=== PATIENT | female | born 2005 | race Caucasian/White ===

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

== ENCOUNTER 2023-01-10 22:18 | Emergency (ER) | payer OTHER ==
[~2023-01-10] VITALS: Ht 162 cm; Wt 65.4 kg
[~2023-01-10 22:18] MED LIST changes: +SULF1TAB38 PO; -cefTRIAXone 1,000 MG VIAL IM SCH
--- NOTE | 2023-01-10 22:25 | ED GU-Female ---
General Stated Complaint: UTI SYMPTOMS History of Present Illness Date Seen by Provider: Jan 10, 2023 Time Seen by Provider: 22:21 Initial Comments 17 yr F is here with c/o dysuria and polyuria for the past 4 days. 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 Denies abdominal pain, flank pain, nausea, vomiting, fever and chills. Allergies and Home Medications Allergies Coded Allergies: No Known Drug Allergies (Unverified , 03/02/22) Patient Home Medication List Home Medication List Reviewed: Yes Sulfamethoxazole/Trimethoprim (Bactrim Ds Tablet) 1 Each Tablet, 1 EACH PO BID Prescribed by: Lizzette Maciel,Medical Student on 03/02/22 4062 Review of Systems Review of Systems Constitutional: no symptoms reported EENTM: no symptoms reported Respiratory: no symptoms reported Cardiovascular: no symptoms reported Gastrointestinal: no symptoms reported Genitourinary: dysuria, frequency Musculoskeletal: no symptoms reported Physical Exam Vital Signs Vital Signs - First Documented 01/10/23 22:23 Temp 37.0 Pulse 95 Resp 20 B/P (MAP) 143/82 (102) Pulse Ox 100 O2 Delivery Room Air Capillary Refill : Height, Weight, BMI Height: '" Weight: lbs. oz. kg; 22.00 BMI Method: General Appearance: WD/WN, no apparent distress HEENT: PERRL/EOMI Neck: full range of motion Cardiovascular: regular rate, rhythm Respiratory: lungs clear Gastrointestinal: normal bowel sounds, non tender, soft Back: no CVA tenderness Neurologic/Psychiatric: alert, oriented x 3 Progress/Results/Core Measures Suspected Sepsis SIRS Temperature: Pulse: Respiratory Rate: Blood Pressure / Mean: Results/Orders Lab Results Laboratory Tests Test 01/10/23 22:26 Range/Units Urine Color YELLOW Urine Clarity CLOUDY H Urine pH 8.0 5-9 Urine Specific [place] 1.015 L 1.016-1.022 Urine Protein 1+ H NEGATIVE Urine Glucose (UA) NEGATIVE NEGATIVE Urine Ketones NEGATIVE NEGATIVE Urine Nitrite NEGATIVE NEGATIVE Urine Bilirubin NEGATIVE NEGATIVE Urine Urobilinogen 0.2 < = 1.0 MG/DL Urine Leukocyte Esterase 3+ H NEGATIVE Urine RBC (Auto) 3+ H NEGATIVE Urine RBC >100 H /HPF Urine WBC >100 H /HPF Urine Squamous Epithelial Cells 2-5 /HPF Urine Crystals NONE /LPF Urine Bacteria LARGE H /HPF Urine Casts NONE /LPF Urine Mucus NEGATIVE /LPF Urine Culture Indicated YES Urine Test NEGATIVE NEGATIVE My Orders Orders - KRISTOPHER STOVER MD Hcg,Qualitative Urine (01/10/23 22:25) Ua Culture If Indicated (01/10/23 22:25) Urine Culture (01/10/23 22:26) Vital Signs/I&O 01/10/23 22:23 Temp 37.0 Pulse 95 Resp 20 B/P (MAP) 143/82 (102) Pulse Ox 100 O2 Delivery Room Air Capillary Refill : Progress Note : Progress Note 1. ACUTE CYSTITIS WITH HEMATURIA: - UA: Positive for leukocyte esterase, RBC, WBC, bacteria - UCG: Negative - Prescription given for nitrofurantoin 100mg, twice a day for 7 days, with first tab given in the ER -Adequate hydration advised, at least 8 glasses of water per day - Follow up with PCP as needed Departure Impression Primary Impression: Acute cystitis with hematuria Disposition: HOME, SELF-CARE Condition: Stable Departure-Patient Inst. Referrals: NO,LOCAL PHYSICIAN (PCP/Family) Primary Care Physician Patient Instructions: Urinary Tract Infection, Adult (DC), Acute Cystitis (DC) Add. Discharge Instructions: - Prescription given for nitrofurantoin 100mg, twice a day for 7 days -Adequate hydration advised, at least 8 glasses of water per day Scripts Nitrofurantoin Macrocrystal (Nitrofurantoin) 100 Mg Capsule 100 MG PO Q12H for 7 Days, #14 CAP Prov: KRISTOPHER STOVER MD 01/10/23 KRISTOPHER STOVER MD Jan 10, 2023 22:25
[2023-01-10 22:51] LABS: BILIRUBIN,URINE NEGATIVE (NEGATIVE); CLARITY,URINE CLOUDY; COLOR,URINE YELLOW; GLUCOSE, URINE (UA) NEGATIVE (NEGATIVE); KETONES,URINE NEGATIVE (NEGATIVE); LEUKOCYTE ESTERASE ,URINE 3+ (NEGATIVE); NITRITE,URINE NEGATIVE (NEGATIVE); PROTEIN,URINE 1+ (NEGATIVE)
[2023-01-10 22:52] LABS: BACTERIA,URINE LARGE /HPF; RBC,URINE >100 /HPF; WBC,URINE >100 /HPF
[2023-01-10] MEDS ORDERED: NITR100C PO (23:15)
[2023-01-10 23:23] VITALS: BP 138/91
[2023-01-10] MEDS ORDERED: NITROFURANTOIN Monohydrate/Macro 100 MG CAPSULE PO ONE (23:30)
== END 2023-01-10 23:23 | disposition home or self-care (01) ==
LOC: EDUNIT# 22:18 → ER FS 22:20
DX: N30.01 Acute cystitis with hematuria (principal); Z28.310 Unvaccinated for COVID-19
CPT/HCPCS: 81000; 84703; 87077; 87088; 87186; 99283